=== PATIENT | male | born 1995 | race Two or more races ===

== ENCOUNTER 2020-07-05 01:35 | Emergency (ER) | payer SELFPAY ==
[~2020-07-05] VITALS: Ht 185.4 cm; Wt 111.1 kg
[2020-07-05 02:41] VITALS: BP 118/64
--- NOTE | 2020-07-05 02:56 | NUR ---
PATIENT IS AT BEDSIDE WITH C/O POSTERIOR HEAD PAIN SINCE 30x MINUTE AGO. PATIENT STATES THAT HE HAD LOSS CONSCIOUSNESS, BUT DID NOT HIT HEAD. PATIENT IS AAOX4. AMBULATORY WITH A STEADY GAIT. PATIENT IS CONNECTED TO THE MONITOR.
[2020-07-05] MEDS ORDERED: ONDANSETRON 4 MG TAB.RAPDIS SL ONE (03:00)
[2020-07-05] MEDS ORDERED: ONDANSETRON 4 MG TAB.RAPDIS ONE (03:07)
[2020-07-05 03:19] LABS: BASOPHILS % (AUTO) 0.3 % (0.0-2.0); EOSINOPHILS % (AUTO) 0.5 % (0.0-6.0); HEMATOCRIT 49 % (39-51); HEMOGLOBIN 16.4 g/dL (13.5-17.5); LYMPHOCYTES # (AUTO) 2.2 /CMM (0.8-4.8); LYMPHOCYTES % (AUTO) 25.9 % (20.0-44.0); MEAN CORPUSCULAR HGB CONC 34 g/dl (31.0-36.0); MEAN CORPUSCULAR VOLUME 85 fL (80-96); MONOCYTES # (AUTO) 1.1 /CMM (0.1-1.30); MONOCYTES % (AUTO) 13.1 % (2.0-12.0); NEUTROPHILS # (AUTO) 5.2 /CMM (1.8-8.9); NEUTROPHILS % (AUTO) 60.2 % (43.0-81.0); PLATELET COUNT (AUTO) 254 /CMM (150-450); RED BLOOD CELL COUNT(AUTO) 5.75 MIL/uL (4.5-6.0); WHITE BLOOD COUNT (AUTO) 8.7 K/uL (4.3-11.0)
[2020-07-05 03:46] LABS: ALBUMIN 3.8 g/dL (3.4-5.0); BILIRUBIN,DIRECT 0.1 mg/dL (0.0-0.2); BILIRUBIN,TOTAL 0.3 mg/dL (0.2-1.0); CALCIUM, SERUM 9.5 mg/dL (8.5-10.1); POTASSIUM 4.5 mmol/L (3.5-5.1); TOTAL PROTEIN, SERUM 7.5 g/dL (6.4-8.2)
--- NOTE | 2020-07-05 04:25 | NUR ---
Patient discharged to home in stable condition. Written and verbal after care instructions given. Patient verbalizes understanding of instruction.
[2020-07-05] MEDS ORDERED: ONDA4TAB11 PO (04:30)
== END 2020-07-05 04:58 | disposition home or self-care (01) ==
LOC: ER 01:38
DX: S00.83XA Contusion of other part of head, initial encounter (principal); R55 Syncope and collapse; F17.210 Nicotine dependence, cigarettes, uncomplicated; Z79.899 Other long term (current) drug therapy; W06.XXXA Fall from bed, initial encounter; Y93.89 Activity, other specified; Y92.89 Other specified places as the place of occurrence of the external cause; Y99.8 Other external cause status
CPT/HCPCS: 36415; 80048; 80076; 85025; 93005; 99284; 99406; Q0162